=== PATIENT | male | born 1990 | race Caucasian/White ===

== ENCOUNTER 2023-04-11 09:30 | Outpatient (OUT) | payer OTHER, SELFPAY ==
--- NOTE | 2023-04-11 09:42 | XR_ITS ---
The [address] [address] Patient Name: ANALI NELSON MRN: [id number] date: 1990 Sex: M Assigned Patient Location: [facility] Current Patient Location: [facility] Accession/Order Number: [id number] Exam Date: 04/11/2023 09:50 Report Date: 04/11/2023 10:13 At the request of: MURPHY SHANNON Procedure: XR chest 2V EXAM: XR chest 2V HISTORY: Persistent Cough R05.3 COMPARISON: None. TECHNIQUE: PA and lateral views of the chest. FINDINGS: The cardiomediastinal silhouette is normal. No focal consolidation is identified. There is no pneumothorax. No pleural effusion is noted. The osseous structures are intact. XR/XR chest 2V IMPRESSION: No acute cardiopulmonary process. Electronically authenticated by: TAY WILLIAM Date: 04/11/2023 10:13
== END 2023-04-11 09:31 | disposition home or self-care (01) ==
LOC: RAD 09:33
PROVIDERS: PCP Internal Medicine; Visit Provider Internal Medicine
DX: R05.3 Chronic cough (principal)
CPT/HCPCS: 71046

== ENCOUNTER 2024-12-19 08:17 | Outpatient (OUT) | payer OTHER, SELFPAY ==
[2024-12-19 08:42] LABS: Hematocrit 44.8 % (42.0-54.0); Hemoglobin 15.6 g/dL (14.0-18.0); Immature Granulocytes Abs Auto 0.00 10^3/uL (0.00-0.03); Immature Granulocytes Pct Auto 0.0 % (0.0-0.5); Lymphocytes Absolute Auto 2.4 10^3/uL (1.2-3.8); Mean Corpuscular HGB Conc 34.8 g/dL (29.9-35.2); Mean Corpuscular Hemoglobin 29.4 pg (25.9-34.0); Mean Corpuscular Volume 84.5 fL (80.0-94.0); Platelet Count 244 10^3/uL (150-450); Red Blood Count 5.30 10^6/uL (4.70-6.10); White Blood Count 6.7 10^3/uL (4.0-11.0)
[2024-12-19 09:10] LABS: Alanine Aminotransferase 22 U/L (16-63); Albumin Globulin Ratio 1.0; Albumin Level 3.6 g/dL (3.4-5.0); Alkaline Phosphatase 65 U/L (46-116); Anion Gap 13.1; Aspartate Amino Transferase 26 U/L (15-37); Blood Urea Nitrogen 20.0 mg/dL (7.0-18.0); Calcium 8.9 mg/dL (8.5-10.1); Carbon Dioxide 28.7 mmol/L (21.0-32.0); Chloride 106 mmol/L (98-107); Cholesterol 239 mg/dL (<=200); Estimated GFR (African America >60 (>=60 mL/min/1.73m^2); Estimated GFR (Non-African Ame >60 (>=60 mL/min/1.73m^2); Globulin 3.5 g/dL; Glucose 90 mg/dL (74-106); HDL Cholesterol 44 mg/dL (40-60); Potassium 3.8 mmol/L (3.5-5.1); Sodium 144 mmol/L (136-145); Thyroid Stimulating Hormone 1.498 uIU/mL (0.358-3.740); Total Protein 7.1 g/dL (6.4-8.2); Triglycerides 138 mg/dL (<=150); VLDL CHOLESTEROL 27.6 mg/dL
== END 2024-12-19 08:18 | disposition home or self-care (01) ==
LOC: LAB 08:19
PROVIDERS: PCP Internal Medicine; Visit Provider Internal Medicine
DX: Z00.00 Encounter for general adult medical examination without abnormal findings (principal)
CPT/HCPCS: 36415; 80053; 80061; 84443; 85025

== ENCOUNTER 2025-05-15 07:59 | Outpatient (OUT) | payer OTHER, SELFPAY ==
--- NOTE | 2025-05-15 08:02 | CA_ITS ---
Patient Name: ANALI NELSON MR#: [id number] : 1990 Exam Date: 05/15/2025 Ordering Doctor: DR SHAINA SCOTT M.D. ECHOCARDIOGRAM REPORT PROCEDURE: CA ECHO DOPPLER COMPLETE INDICATIONS: Chest pain, dyspnea COMPARISON: None. DESCRIPTION: COMPLETE ECHOCARDIOGRAM Real-time transthoracic echocardiography with 2D, M-mode, spectral and color flow Doppler performed. QUALITY: Technical quality was good. LEFT VENTRICLE: Normal chamber size. Mild concentric left ventricular hypertrophy. Global left ventricular systolic function is normal. Estimated left ventricular ejection fraction is 60%. LV EF: Normal left ventricular ejection fraction, (>55%). DIASTOLIC: Normal diastolic function. ATRIAL SEPTUM: LEFT ATRIUM: Normal chamber size. RIGHT ATRIUM: Normal chamber size. RIGHT VENTRICLE: Normal chamber size. Normal right ventricular systolic function. TRICUSPID VALVE: Normal mobility and thickness. No stenosis with trivial regurgitation. No evidence of pulmonary hypertension. The RVSP measures 23 mmHg. MITRAL VALVE: Normal mobility and thickness. No evidence of mitral valve stenosis. There is no mitral annular calcification. Trivial mitral regurgitation. AORTIC VALVE: Normal trileaflet appearance. No visible sclerosis. Normal leaflet mobility. No evidence of aortic valve stenosis. No aortic regurgitation. AORTIC ROOT: Normal diameter and appearance. The aortic root measures 3.4 cm. The ascending aorta is normal in size measuring 2.9 cm. PULMONIC VALVE: Normal thickness and mobility. No stenosis. Trivial regurgitation. PERICARDIUM: No evidence of pericardial effusion. IVC: Collapses with inspiration. The ICV measures 1.7 cm. PLEURA: CONCLUSION: 1. Mild concentric left ventricular hypertrophy with normal systolic function. Estimated LVEF is 60%. 2. Normal right ventricular size and systolic function. 3. Normal diastolic function. 4. No significant valvular dysfunction. 5. Normal right-sided pressures. Adult Echocardiography Procedure Report Left Ventricle LVEDD (3.7 - 5.6 cm): 4.75 cm LVESD (2.2 - 4.0 cm): 3.27 cm LVIVS thickness (0.6 - 1.2 cm): 1.33 cm LVPW thickness (0.5 - 1.0 cm): 1.24 cm e': 0.14 m/s E - e': 6.48 LVOT Max Gradient: 5.38 mm[Hg] LVOT Area (cm2): 1.16 m/s Peak Velocity (LVOT): 1.16 m/s Mean Velocity (LVOT): 0.73 m/s LVOT Diameter 2.05 cm Left Ventricular Ejection Fraction: 60 % Left Atrium LA Volume Index (2D A2C): 20.58 ml/m2 Left Atrium Systolic Dimension: 3.66 cm Mitral Valve MV E to A Ratio: 1.44 Mitral Valve A-Wave Peak Velocity: 0.63 m/s Mitral Valve E-Wave Peak Velocity: 0.90 m/s Right Ventricle RV Internal Diastolic Dimension: 3.54 cm Aorta AO Root Diam: 3.38 cm Ascending Ao Diam: 2.85 cm Aortic Valve AoV Area (Peak Henri): 2.79 cm2, 2.79 cm2 AoV Area (VTI): 3.08 cm2, 3.08 cm2 Peak Velocity(Antegrade Flow): 1.37 m/s Peak Gradient(Antegrade Flow): 7.51 mm[Hg] Mean Velocity(Antegrade Flow): 0.84 m/s Mean Gradient(Antegrade Flow): 3.48 mm[Hg] Velocity Time Integral: 25.04 cm Tricuspid Valve Peak Velocity (Regurgitant Flow): 1.77 m/s, 2.25 m/s, 1.89 m/s Pulmonic Valve Mean Gradient: 1.87 mm[Hg], 1.54 mm[Hg] Mean Velocity: 0.63 m/s, 0.56 m/s Peak Velocity: 0.95 m/s Peak Gradient: 3.97 mm[Hg], 3.33 mm[Hg] Right Atrium Right Atrium Systolic Pressure: 31.71 ml, 31.71 ml Dictated by: Shaina Scott M.D. on 05/15/2025 at 18:29 Approved by: Shaina Scott M.D. on 05/15/2025 at 18:34
--- OUTSIDE RECORDS SUMMARY | 2025-05-15 08:02 | XMS_ITS | Clinical Summary ---
Author Organization [facility] Address [address] [place] [address] Care Team Providers Care Medical Coder Name Role Phone Vincent Luna DO Primary Care Provider [phone] Allergies Active AllergyReactionsCriticalityNoted DateCommentsCat Hair Std Allergenic Ext Other01/08/2025 Active Problems ProblemNoted DateDiagnosed DatePectus quzealfwt16/11/2025 Family History Medical HistoryRelationNameCommentsHeart attackMaternal GrandfatherHeart attack Maternal GrandmotherHypertensionMotherHeart attackPaternal GrandfatherHeart attackPaternal GrandmotherRelationNameStatusCommentsMaternal GrandfatherMaternal GrandmotherMotherPaternal GrandfatherPaternal Grandmother Social History Tobacco UseTypesPacks/DayYears UsedDateSmoking Tobacco: NeverSmokeless Tobacco: Never Tobacco Cessation:Counseling Given: Not Answered Alcohol UseStandard Drinks/WeekCommentsYes0 (1 standard drink = 0.6 oz pure alcohol)sociallyPHQ-2AnswerDate RecordedPatient Health Questionnaire-2 Score0 01/08/2025Sex and Gender InformationValueDate RecordedSex Assigned at BirthMale 01/08/2025 2:40 PM EDTLegal RdbHaqu4612/25/2024 8:25 AM EDTGender IdentityMale 01/08/2025 2:40 PM EDTSexual OrientationHeterosexual or Xacojppa22/29/2025 2:40 PM EDT Last Filed Vital Signs Vital SignReadingTime TakenCommentsBlood Urgqrwcf906/7708 8:54 AM EDT Lzbhn771101/21/2025 8:54 AM BPPJubygdggmee73.5 ??C (97.7 ??F)01/08/2025 2:40 PM EDTRespiratory Rate--Oxygen Bhouhoefqi99%01/21/2025 8:54 AM EDTInhaled Oxygen Concentration--Tphozu57.3 kg (219 lb)01/21/2025 8:54 AM JFOLsgizu594.9 cm (6') 01/21/2025 8:54 AM EDTBody Mass Index29.7001/21/2025 8:54 AM EDT Plan of Treatment Health MaintenanceDue DateLast DoneCommentsVaricella Vaccines (1 of 2 - 13+ 2- dose series)2004Hepatitis B Vaccines (1 of 3 - 19+ 3-dose series) 2010dult Cdfywur2003/13/2013HPV Vaccines (1 - 3-dose SCDM series)2018 COVID-19 Vaccine ( - season)511/, 04/20/2021Influenza Vaccine (#1)2025Depression Dnyruueqw17/29/36629701/08/2025Zoster Vaccines (1 of 2)2041HIB VaccinesAged OutNo longer eligible based on patient's age to complete this topicIPV VaccinesAged OutNo longer eligible based on patient's age to complete this topicMeningococcal B VaccineAged OutNo longer eligible based on patient's age to complete this topicMeningococcal VaccineAged OutNo longer eligible based on patient's age to complete this topicPneumococcal Vaccine: Pediatrics (0 to 5 Years) and At-Risk Patients (6 to 64 Years)Aged OutNo longer eligible based on patient's age to complete this topicRotavirus VaccinesAged Out No longer eligible based on patient's age to complete this topic Insurance Care Teams Team MemberRelationshipSpecialtyStart DateEnd Date Vincent Luna DO [address] [place] [address] PCP - GeneralInternal Medicine01/08/25
--- OUTSIDE RECORDS SUMMARY | 2025-05-15 08:02 | XMS_ITS | CCD ---
Author Organization [facility] Care Team Providers Care Court Deputy Name Role Phone VINCENT LUNA Admitting Unavailable VINCENT LUNA Attending Unavailable VINCENT LUNA Admitting Unavailable VINCENT LUNA Attending VINCENT Box Primary Care Physician DO Vincent Luna Primary Care Provider MD Shahrzad Castanon Attending Provider Vincent Luna Primary Care Unavailable Shahrzad Castanon Attending Shahrzad Boyce Admitting Unavailable Vincent Luna Unavailable Shahrzad Castanon. Attending Unavailable Shahrzad Castanon. Attending Unavailable Vincent Luna DO Primary Care Provider Vincent Luna DO Attending Provider MARY NGUYEN Attending Unavailabl e VINCENT LUNA Referring Unavailable SHAINA ARROYO Attending Unavailable JESSI ESQUIVEL Referring Unavailable Allergies Allergy ClassificationReported Allergen(s)Allergy TypeDate of OnsetReaction(s) Facility (4 sources)Seasonal allergy; Translations: [Seasonal]Allergy to substance Sneezing symptoms (finding)[facility] (1 source)CAT HAIR STD ALLERGENIC EXT; Translations: [CAT HAIR STD ALLERGENIC EXT]Propensity to adverse reactions to drug (disorder)95-56-0841ZyhyiacfyiWVUMedicine [facility] Repository Medications Current Medications MedicationDrug Class(es)DatesSig (Normalized)Sig (Original)cephalexin 500 mg oral capsule (2 sources)Cephalosporin AntibacterialStart: 33-68-3760xije 1 capsule by mouth four times dailyKeflex 500 mg Cap 500 mg = 1 cap(s), Oral, QID, # 20 cap(s), Refills(s) 0, Pharmacy: [facility]/pharmacy #[id number], 184, martín, 10/07/21 8:37:00 EDT, Height/Length Dosing, 90.9, kg, 10/07/21 8:37:00 EDT, Weight Dosing Start Date: 10/07/21 Status: Ordered Completed/Discontinued Medications MedicationDrug Class(es)DatesSig (Normalized)Sig (Original)acetaminophen 325 mg / HYDROcodone bitartrate 5 mg oral tablet (2 sources)Opioid AgonistStart: 10-07-2021 End: 58-25-5982Ejusf 325 mg-5 mg oral tablet 1 tab(s), Oral, q6hr for severe uncontrolled pain, 4 tab(s), Refill(s) 0, [facility]/pharmacy #[id number], 184, , 10/07/21 8:37:00 EDT, Height/Length Dosing, 90.9, kg, 10/07/21 8:37:00 EDT, Weight Dosing Start Date: 10/07/21 Stop Date: 10/10/21 Status: Orderedcefdinir 300 mg oral capsule (2 sources)Cephalosporin AntibacterialStart: 65-38-7398Uohpwpij 300 MG 1 Orally twice daily for 10 days Jun, Not-Takingcyclobenzaprine hydrochloride 10 mg oral tablet (2 sources)Muscle RelaxantStart: 83-69-6201tavs 1 tablet by mouth every eight hoursCyclobenzaprine HCl 10 MG 1 tablet as needed Orally Three times a day for 10 days Feb, Not-TakingdiazePAM 10 mg oral tablet (1 source)BenzodiazepineStart: 39-10-2322Xzmknf 10 mg Tab 10 mg = 1 tab(s), Oral, As Directed, Take 1 tab 30 minutes before the procedure., # 1 tab(s), Refills(s) 0, Pharmacy: [facility]/pharmacy #[id number], 184, cm, 10/07/21 8:37:00 EDT, Height/LengthDosing, 90.9, kg, 10/07/21 8:37:00 EDT, Weight Dosing Start Date: 10/07/21 Status: Orderedhydrocortisone 10 mg/ml / neomycin 3.5 mg/ml / polymyxin b 84145 unt/ml otic suspension (2 sources)Aminoglycoside Antibacterial, Polymyxin-class Antibacterial, CorticosteroidStart: 45-17-6849Qozqqfmc-Polymyxin-HC 3.5-38972-2 4 drops into affected ear Otic qid for 7 days Jun, Not-Takingmeloxicam 7.5 mg oral tablet (2 sources)Nonsteroidal Anti-inflammatory Drugtake 1 tablet by mouth every twenty-four hoursMeloxicam 7.5 MG 1 tablet Orally Once a day Not-Taking methylPREDNISolone 4 mg oral tablet (2 sources)CorticosteroidStart: 38-69-0343Fuycye (Johnny) 4 MG half of daily dose in the morning with food and the rest at night with food Orally Feb, Not-Taking Problems Active Problems Problem ClassificationProblemDateDocumented DateEpisodic/ChronicChronic obstructive pulmonary disease and bronchiectasis (1 source)Bronchitis, not specified as acute or chronicEpisodicContraceptive and procreative management (5 sources)Contraception status; Translations: [Encounter for other general counseling and advice on contraception]Onset: 64-33-6153XayevgafLnmgihtno of lipid metabolism (2 sources)Mixed hyperlipidemia; Translations: [Mixed hyperlipidemia]Onset: 98-39-4495WzcwmceLtwlzhyyitc chest pain (2 sources)Other chest pain; Translations: [Other chest pain]Onset: 01-21-2025 EpisodicOther congenital anomalies (3 sources)Pectus excavatum; Translations: [Pectus excavatum]Onset: 01-08-2025 27-86-3022NjglmzzJnaey congenital anomalies (1 source)Pectus excavatum; Translations: [Pectus excavatum]Onset: 01-08-2025 ChronicOther lower respiratory disease (2 sources)Shortness of breath; Translations: [Shortness of breath]Onset: 29-80-8601GjgvoxqeFsqte nutritional; endocrine; and metabolic disorders (5 sources)Overweight; Translations: [Overweight]25-35-4061MyoezfqlHxrkf nutritional; endocrine; and metabolic disorders (1 source)Overweight; Translations: [Overweight]EpisodicOther skin disorders (2 sources)Excessive sweating; Translations: [Generalized hyperhidrosis] 82-61-7033LtgcocpqSllzvhq and strains (10 sources)Sprain of ligaments of lumbar spine, subsequent encounter; Translations: [Lumbar sprain]Onset: 26-09-0902FdkptfbbLaszmxiygljb (3 sources)Patient encounter frqzop77-71-3885 Past or Other Problems Problem ClassificationProblemDateDocumented DateEpisodic/ChronicUnclassified (1 source)Persistent cough R05.3Viral infection (1 source)COVID-19 Results Test NameValueInterpretationReference HuktoGibiuvbx03zt 77-75-6916724. Due to your symptoms of shortness of breath and chest discomfort we will check a treadmill stress test and an echocardiogram. 2. You have elevated cholesterol levels. I recommended lifestyle modification with exercise and diet. 3. Follow-up in 6-monthNormalUniHocking Valley Community HospitalOffice Visiton 30-56-5390Ctpguf-up [id number] Anali Nelson 1990 M Date Provider Department Center 01/21/2025 Godwin-SHAINA ARROYO [facility] Family History Problem Relation Age of Onset Hypertension Mother Heart attack Maternal Grandmother Heart attack Maternal Grandfather Heart attack Paternal Grandmother Heart attack Paternal Grandfather Family Status - Relation Status Age at Mother Maternal Grandmother Maternal Grandfather Paternal Grandmother Paternal Grandfather Level of Service:36711 PA OFFICE/OP CONSLTJ NEW/EST PT MOD MDM 40 MINUTES (25)[facility]36on 25-77-113631RUD with call back number with Cardiology appointment details. TuesdayJanuary [address] Arroyo at [facility].Normal [facility] HospitalAbstracton [id number] Anali Nelson 1990 M Date Provider Department Center 01/08/2025 2020-KENNY DUNN [facility] Family History Problem Relation Age of Onset Hypertension Mother Heart attack Maternal Grandmother Heart attack Maternal Grandfather Heart attack Paternal Grandmother Heart attack Paternal Grandfather Family Status - Relation Status Age at Mother Maternal Grandmother Maternal Grandfather Paternal Grandmother Paternal GrandfatherNormalKettering Memorial HospitalConsulton [id number] Anali Nelson 1990 M Date Provider Department Center 01/08/2025 89519-MHURGCITUBMARY NGUYEN J[facility]CTS [facility] Family History Problem Relation Age of Onset Hypertension Mother Heart attack Maternal Grandmother Heart attack Maternal Grandfather Heart attack Paternal Grandmother Heart attack Paternal Grandfather Family Status - Relation Status Age at Mother Maternal Grandmother Maternal Grandfather Paternal Grandmother Paternal Grandfather Level of Service:43890 PA OFFICE/OP CONSLTJ NEW/EST PT HIGH MDM 55 MINUTES Reason for Visit and Comments: Consult [484] - Pectus excavatum [facility] RehabilitationAmb[facility] Visit Summaryon 57-05-9711Xozulbqwoj Visit SummaryAmbulatory Visit Summary ANALI NELSON :1990 Visit Date:10/05/2024 Ambulatory Visit Instructions Your Diagnosis Scrotal pain Your Care Team Attending Physician - Shahrzad Castanon MD Primary Care Physician - VINCENT LUNA DO Procedures Performed Vasectomy (11/05/2021). Discharge Vitals Heart Rate (Peripheral) 69 Blood Pressure 141/93 Height 184 cm Height 72 in Weight 99 kg Weight 218.257 lb BMI 29.24 What to do next You Need to Schedule the Following Appointments Follow Up with Lg POP, Shahrzad Funes, URL, URO When: Where: Allergies Seasonal (Sneezing symptoms) Patient Survey You may receive a survey via text or e-mail asking about your office visit. Please share your experience with us by completing your survey. We appreciate your feedback and thank you for choosing us for your care. Education Materials Testicular Self-Exam A self-examination of your testicles (testicular self-exam) involves looking at and feeling your testicles for abnormal lumps or swelling. Several things can cause swelling, lumps, or pain in your testicles, including: ??? Injuries. ??? Inflammation. ??? Infection. ??? Buildup of fluids around the testicle (hydrocele). ??? Twisted testicles (testicular torsion). ??? Testicular cancer. You may be at risk for this if you have: ? A testicle that has not descended. ? Previously had testicular cancer. ? A family history of testicular cancer. General tips ??? It is easiest to do a self-exam during or after a warm bath or shower. Testicles are harder to examine when you are cold because the muscles attached to the testicles retract and pull them up higher or into the abdomen. ??? A normal testicle is egg-shaped and feels firm. It is smooth and not tender. ??? It is normal to feel a firm, spaghetti-like cord at the back of your testicle. This is the spermatic cord. ??? Do a self-exam once a month. How to do a testicular self-exam 1. Stand and hold your penis away from your body. 2. Look at each testicle to check for changes in appearance, such as swelling or changes in size or shape. 3. Roll each testicle between your thumb and forefinger, feeling the entire testicle. Feel for: ??? Lumps. ??? Swelling. ??? Discomfort. 4. Check for swelling or tender bumps in the groin area. Your groin is where your lower belly (abdomen) meets your upper thighs. Contact a health care provider if: ??? You find a bump or lump. This may be a small, hard bump that is the size of a pea. ??? You have swelling, pain, or soreness in your testicle area. ??? You see or feel any other changes in your testicles. This information is not intended to replace advice given to you by your health care provider. Make sure you discuss any questions you have with your health care provider. Document Revised: 03/14/2023 Document Reviewed: 03/14/2023 [employer] Patient Education ??? 2023 [employer]. NormalFisher Holy Cross HospitalUrology Office/Clinic Noteon [id number] Office/Clinic NoteUrology Office/Clinic Note Chief Complaint scrotal pain 3-4weeks ago HPI Staff 34 year old male presents for scrotal pain. Last seen 11/25/21 for p/o vas. s/p: 10/16/21 vas IPSS: 1 SERGE: 25 Pt states he is no longer having any pain. Pt had pain 3-4 weeks ago with left sided scrotal pain w/ redness and swelling that went away. Denies dysuria, denies visible blood. Denies pain with intercourse History of Present Illness Tests reviewed: UA I have reviewed the previous health record information and history for this patient from Dr. Castanon. I have reviewed and verified the staff HPI to be accurate for this encounter. Review of Systems PHQ Score Initial Depression Screen Score: 0 SCORE ROS - Provider Constitutional: denies weight loss, denies hot flashes. Eyes: denies eye problems. Gastrointestinal: denies nausea, denies vomiting. Cardiovascular: denies chest pain or angina. Integumentary: no dryness Musculoskeletal: denies musculoskeletal symptoms. ENMT: denies otolaryngeal symptoms. Respiratory: no shortness of breath. Heme/Lymph: denies easy bleeding tendency, denies easy bruising tendency. Psychiatric: no confusion, no anxiety. Genitourinary: See HPI. Physical Exam Vitals & Measurements HR: 69(Peripheral) BP: 141/93 HT: 184 cm HT: 72 in WT: 99 kg WT: 218.257 lb BMI: 29.24 General Appearance: alert, no distress, well nourished, well developed male. : No Left inguinal hernia. BL testes descended, nontender, no masses. Left spermatic cord tissue fullness lipoma vs varicocele (no veins noted with valsalva), non tender, no swelling. Assessment/Plan 34 yo M pt here for self-resolved left scrotal pain. S/p vasectomy 11/05/21 - azoospermia confirmed postop vas specimen 02/22/22 IPSS 1. SERGE 25. 1. Scrotal pain (N50.82: Scrotal pain) UA neg. 3-4 wks ago, pt had pain, redness, swelling in his left upper scrotum for 3-4 days then it resolved. He does not recall any triggers. No urethral discharge, gross hematuria or changes with ejaculation. Has noticed less ejaculate volume for 6-7 mos otherwise does not appear different. No issues aftervasectomy. Discussed scrotal US, pt does not feel that is necessary at this time. Educated on S/S of infection that would warrant treatment or follow up conditions. Follow up PRN. Pt understands and agrees with plan. -Regular monthly self testicular exams -If sx recur, NSAIDS/tylenol prn, scrotal support, call for closer f/u or present to urgent care/ERif signs of infection Follow-up With When Contact Information Lg POP, Shahrzad Funes, URL, URO Additional Instructions: PRN Patient Education Testicular Self-Exam I, Crystal Mobley, personally scribed for Dr. Castanon on 10/05/2024 09:39:43. . Documentation recorded by the scribe, Crystal Mobley, accurately reflects the services(s) I performed and decisions made by me. Authenticated by Dr. Castanon on 10/05/2024 09:46:12. Problem List/Past Medical History Ongoing No qualifying data Historical No qualifying data Procedure/Surgical History Vasectomy (11/05/2021). Medications No active medications Allergies Seasonal (Sneezing symptoms) Social History Tobacco Never (less than 100 in lifetime) Tobacco Use:. Never Smokeless Tobacco Use:. Cigarettes, 10/05/2024 Family History Diabetes mellitus type 2: Grandparent. Immunizations Vaccine Date Status Comments influenza virus vaccine, inactivated - Not Given Temporary contraindication - reschedule SARS-CoV-2 (COVID-19) Ad26 vaccine 05/2021 Recorded SARS-CoV-2 (COVID-19) mRNA BNT-162b2 vax 05/11/2021 Recorded SARS-CoV-2 (COVID-19) mRNA BNT-162b2 vax 04/20/2021 Recorded 2024-10-05: TPVAL SARS-CoV-2 (COVID-19) Ad26 vaccine 04/2021 Recorded Lab Results Ambulatory Point of Care Results Bilirubin Urine Dipstick: Negative (10/05/24 09:12:00) Blood Urine Dipstick: Negative (10/05/24 09:12:00) Glucose Urine Dipstick: Negative (10/05/24 09:12:00) Ketones Urine Dipstick: Negative (10/05/24 09:12:00) Leukocytes Urine Dipstick: Negative (10/05/24 09:12:00) Nitrite Urine Dipstick: Negative (10/05/24 09:12:00) Protein Urine Dipstick: Negative (10/05/24 09:12:00) Specific [place] Urine Dipstick: 1.025 (10/05/24 09:12:00) Urine Appearance Urine Dipstick: Clear (10/05/24 09:12:00) Urine Color Urine Dipstick: Yellow (10/05/24 09:12:00) Urobilinogen Urine Dipstick: Normal 0.2-1 EU/dl (10/05/24 09:12:00) pH Urine Dipstick: 5.5 (10/05/24 09:12:00)[facility] Comment on above:Result Comment: Electronically Signed By: Lg POP, Shahrzad Funes\.br\Date and Time Signed: 10/05/24 09:48EDT\.br\Electronically Co-Signed By: Crystal Mobley\.br\Date and Time Co-Signed: 10/05/24 09:39 EDTSemen Analysis, Post Vasectomyon 31-03-6380Fjamn Analysis, Post VasectomyNo Spermatozoa Seen NormalNone [facility] CenterComment on above:Performed By: #### SEMPOST #### [place] [address] USAResult Comment: PERFORMED BY: [place] [address] PATHOLOGIST COFFEE TASTER ROMINA ALTMAN M.D.Semen analysis post vasectomy panelOrdered By: Shahrzad Castanon on 29-18-8366Sfxwo analysis p vasectomy panel (Sunny)No spermatozoa seenNone Seen [facility] Vital Signs Date TimeVital SignValuePerforming JlkuoayjiLgfvvwdg45-57-3488 10:Body dekbiz410.88 cmBenjamin Ball DO Work Phone: [facility]07-08-2025 10: Body mass index (BMI) [Ratio]29.6 kg/x3Zxbdsufe Ball DO Work Phone: [facility]07-08-2025 10: Body uypirf04.1 kgBenjamin Ball DO Work Phone: [facility]07-08-2025 10:28-0400 Diastolic blood kxjgvqdo30 mm[Hg]Vincent Ball DO Work Phone: [facility]07-08-2025 10:28-0400 Heart rate71 /minBenjamin Ball DO Work Phone: [facility]07-08-2025 10:28-0400 Respiratory rate12 /minBenjamin Ball DO Work Phone: [facility]07-08-2025 10:28-0400 Systolic blood cvawqwqs589 mm[Hg]Vincent Ball DO Work Phone: [phone]10-30-2023 08:45-0400 Body lodvlu281.42 cmBenjamin Ball Other [employer] Other 10-30-2023 08:45-0400Body mass index (BMI) [Ratio]26.3 kg/e6Fktddnvq Ball Other [employer] Other 10-30-2023 08:45-0400Body wtckuk69.45 kgBenjamin Ball Other [facility] [employer] Other 10-30-2023 08:45-0400Diastolic blood fledlbjg47 mm[Hg] Vincent Ball Other [employer] [address] [employer] Other 10-30-2023 08:45-0400Respiratory rate12 /minBenjamin Ball Other [employer] [address] [employer] Other 10-30-2023 08:45-0400Systolic blood fusyrhcq017 mm[Hg] Vincent Ball Other [employer] [address] [employer] Other 06-15-2022 07:57-0400Blood Pressure LocationKathy Lue [facility] [employer] 06-15-2022 07:57-0400Diastolic blood xhxkerua23 mm[Hg] Shahrzad Lue [facility] [employer] 06-15-2022 07:57-0400Heart rate67 /minKathy Lue [facility] [employer] 06-15-2022 07:57-0400Systolic blood mm[Hg] Shahrzad Lue [facility] [employer] 05-26-2022 07:29-0400Blood Pressure LocationKathy Lue [facility] [employer] 05-26-2022 07:29-0400Diastolic blood mm[Hg] Shahrzad Lue [facility] [employer] 05-26-2022 07:29-0400Heart rate75 /minKathy Lue [facility] [employer] 05-26-2022 07:29-0400Respiratory rate16 /minKathy Lue [facility] [employer] 05-26-2022 07:29-0400Systolic blood bufujhjf635 mm[Hg] Shahrzad Lue [facility] 04-27-2022 08:33-0400Diastolic blood iiyugsvr11 mm[Hg] Shahrzad Lue [facility] 04-27-2022 08:33-0400Heart rate64 /minKathy Lue [facility] 04-27-2022 08:33-0400Respiratory rate16 /minKathy Lue [facility] 04-27-2022 08:33-0400Systolic blood rqeakqdr516 mm[Hg] Shahrzad Lue [facility] Encounters Encounter DateEncounter TypeCare ProviderFacilityStart: 01-21-2025 End: 02-65-6373vkdunzhwxiVBOLNE MOUKARBOhioHealth [facility]in [facility] Hospital Start: 01-08-2025 End: 32-35-6533lkgzzfmozzABHTCGS J [facility]OWSSal[facility] Start: 12-18-2024 End: 66-82-5520yqyozqxangHdamxvph Jeremy DO Work Phone: [facility] Work Phone: Start: 12-18-2024 End: 88-86-5875Vwbplcr encounter procedureBemarcela Luna [facility] Work Phone: Start: 12-18-2024 End: 45-87-1086Hcrmeik encounter statusBemarcela Luna [facility]: 10-05-2024 End: 72-63-6479fjjpiwksxwWcovv M. LueFacility:[facility] BellevueStart: 08-25-2024 Patient encounter statusBemarcela Jeremy DO Work Phone: [facility]art: 04-12-2023 End: 31-53-8752tgkhpxxakwKoywahtk Ball Other [facility] [employer] Other Start: 09-42-0880Vpzevsato encounterBemarcela Luna Medical ClinicStart: 04-11-2023 End: 39-50-2194xjtibjjycnObfaebkl Ball Other [facility] [employer] Other Start: 64-41-3823Nzfpbk outpatient visit 15 minutes [facility] ClinicStart: 02-22-2022 End: 65-56-0648fgashipifyXltrulbf BallFacility:[facility] Start: 02-22-2022 End: 66-39-6677Qdgjtis encounter procedureDO Vincent Luna Work Phone: [facility] CampusStart: 11-25-2021 End: 99-16-5328Ltfgowj encounter procedureShahrzad Castanon [facility] start: 11-05-2021 End: 39-31-7828Wgwpsho encounter procedureShahrzad Castanon [facility] Start: 10-07-2021 End: 90-73-3458Njvuqaa encounter procedureShahrzad Castanon [facility] start: 73-65-1776Wgoojke encounter procedureBEMichaelLUZ ELENA LUNAFacility:P2Suxpi: 05-04-2019 End: 81-66-1367Ftmvjae encounter procedureBEMichaelLUZ ELENA LUNAFacility:H1 Procedures DateProcedureProcedure DetailPerforming ClinicianStart: 11-25-2021H/O: vasectomy Shahrzad M. Lue Start: 37-57-4237XdpsyzpatQowri Lue Plan of Treatment DateCare ActivityDetailAuthorComprehensive metabolic 2000 panel - Serum or PlasmaLower [facility] Immunizations Immunization DateImmunizationNotesCare GuirdmoaBvcbmywd31-52-2805WGYK-RtV-0 (COVID-19) Ad26 vaccine, recombinantKathy Lue [facility] [id number]-KnP-0 (COVID-19) Ad26 vaccine, recombinantKathy Lue [facility] Payers DatePayer CategoryPayerPolicy [id number] Health [id number] [id number] Health [id number] [id number] [id number] Social History DateTypeDetailFacilityStart: 07-06-2017 End: 53-85-8239Vqvtuwj smoking statusNever smoked tobacco (finding)[facility] sex Assigned At [facility] Tobacco smoking statusNeverExecutive [facility] of [facility] start: 08-26-0788Xxq [facility] At [facility]ex[facility] (finding)[facility] Functional Status LukzDysgnclmgcFylzgdBidetklr01-41-7933Rifbnkbepg StatusN/AExec[facility] Clinical Notes 10-07-2021 to 01-21-2025 Note Date & FbcvPhuaUyjyucht19-04-4252 NoteUT Cardiology [facility] David Nelson is a 34 y.o. year old male patient being seen to establish care. Ref from Dr. Esquivel for SOB and chest discomfort . C/o episodes of diaphoresis and infrequent palpitations. No previous cardiac testing, but had labs last month. Patient Active Problem List Diagnosis Pectus excavatum Family History Problem Relation Name Age of Onset Hypertension Mother Heart attack Maternal Grandmother Heart attack Maternal Grandfather Heart attack Paternal Grandmother Heart attack Paternal Grandfather Social History Tobacco Use Smoking status: Never Smokeless tobacco: Never Substance Use Topics Alcohol use: Yes Comment: socially HPI This is a 34-year-old man who is referred to me for investigation of chest discomfort and shortness of breath. He was referred by his primary care physician to cardiothoracic surgery because of pectus pectus excavatum. It appears that this condition runs in the family and to family members have undergone surgery for correction. He was evaluated by cardiothoracic surgery service and because of his symptoms of chest pain and shortness of breath he was referred to me for further investigation. He reports that he gets occasional symptoms of chest pain described as tension in the chest that could happen about 1 or 2 times a day with or without exertion. The symptom is moderate in intensity and lasts minutes and can resolve on its own. He also has shortness of breath on exertion NYHA class II symptoms. No leg edema. He has very infrequent palpitations. Sometimes he gets episodes of diaphoresis. He does not take any medications on a regular basis. He has not had any prior cardiac workup. Recent blood testing shows elevated cholesterol levels. His family history is significant for coronary artery disease. Review of Systems Constitutional: Positive for diaphoresis. Cardiovascular: Positive for chest pain ( discomfort ), dyspnea on exertion and palpitations ( sometimes ). Respiratory: Positive for shortness of breath. Objective Visit Vitals BP 117/77 (BP Location: Right arm, Patient Position: Sitting) Pulse 58 Ht 1.829 m (6') Wt 99.3 kg (219 lb) SpO2 99% BMI 29.70 kg/m??? Smoking Status Never BSA 2.25 m??? Physical Exam Constitutional: Appearance: He is well-developed. He is not ill-appearing. HENT: Head: Normocephalic and atraumatic. Nose: Nose normal. Eyes: General: No scleral icterus. Pupils: Pupils are equal, round, and reactive to light. Neck: Thyroid: No thyromegaly. Vascular: No JVD. Cardiovascular: Rate and Rhythm: Normal rate and regular rhythm. Pulses: Radial pulses are 2+ on the right side and 2+ on the left side. Heart sounds: Normal heart sounds. No murmur heard. No friction rub. No gallop. Pulmonary: Effort: Pulmonary effort is normal. No respiratory distress. Breath sounds: Normal breath sounds. No wheezing or rales. Chest: Chest wall: No tenderness. Abdominal: General: Bowel sounds are normal. There is no distension. Palpations: Abdomen is soft. Tenderness: There is no abdominal tenderness. Musculoskeletal: General: No swelling. Cervical back: Neck supple. Skin: General: Skin is warm and dry. Neurological: General: No focal deficit present. Mental Status: He is alert and oriented to person, place, and time. Psychiatric: Mood and Affect: Mood normal. Behavior: Behavior is cooperative. Judgment: Judgment normal. Allergies Allergies Allergen Reactions Cat Hair Std Allergenic Ext Other Medications No current outpatient medications on file. Recent Labs Blood testing 12/19/2024: Hemoglobin 15.6, platelets 244, potassium 3.8, BUN 20, creatinine 1.05, EGFR more than 60, LFTs normal, triglycerides 138, cholesterol 239, LDL 168, HDL 44. TSH 1.498. Imaging and other tests ECG 01/21/2025: Normal sinus rhythm, normal ECG. Assessment/Plan Diagnoses and all orders for this visit: Atypical chest pain - Ambulatory referral to Cardiology - ECG 12 lead unit performed - Transthoracic echo (TTE) complete; Future - Routine Stress (Treadmill Only); Future Shortness of breath - Ambulatory referral to Cardiology - Transthoracic echo (TTE) complete; Future - Routine Stress (Treadmill Only); Future Mixed hyperlipidemia - Lipid panel; Future 1. Atypical chest pain: EKG today is normal. I am going to check treadmill exercise stress test given his symptoms, and risk factors including strong family history and hyperlipidemia. I will also check an echocardiogram. 2. Shortness of breath: I am going to check an echocardiogram and a stress test. The echocardiogram will help rule out any cardiac structural abnormalities. 3. Hyperlipidemia: I educated him regarding his significantly elevated cholesterol levels. His LDL is around 170. I told him that the first step would be lifestyle modification with diet (more content not included)... [facility]07-29-2025 NoteCardiothoracic Surgery Outpatient Consultation Note 01/08/2025 Reason For Visit Chief Complaint Patient presents with Consult Pectus excavatum referral from Vincent Luna DO Referring Provider: Vincent Luna DO History Of Present Illness Anali Nelson is a 34 y.o. male with no real PMH. Patient does not take any medications on a daily basis. He does not smoke. He was referred for Pectus Excavatum by his PCP. Patient states over the last year he has been experiencing intermittent episodes of chest pain/pressure and SOB. The events are at random and do not last for a long time. Denies dizziness or lightheadedness. CP and SOB is not relieved with medication or rest. Endorses his father and grandfather underwent surgery for pectus excavatum, yet he thinks it was due to cosmetic reasons. Does not recall them experiencing SOB or Chest Pain. Assessment: Diagnosis Plan 1. Pectus excavatum Ambulatory referral to Cardiothoracic Surgery Plan : -Patient seen and evaluated by Cardiothoracic Team. Dr. Forbes and Dr. Esquivel personally were informed of POC for patient and agreed with POC. -CT Surgery Recommendation: At this time patient does show signs of pectus excavatum on physical examination. He is non-tender with palpation to the sternum. Patient was referred by PCP and has no previous imaging studies. His symptoms of SOB and intermittent episodes of chest tightness/pain are vague. Patient has never underwent a formal cardiac workup and does have cardiac history in his family. He endorses his father and grandfather had pectus excavatum and had surgery for it, but felt it was more for cosmetic reasons. He would like to approach surgery for Pectus Excavatum conservatively. Informed will refer patient to [place] [facility]ology to r/o cardiac cause. Also discussed about patient suffering from anxiety, due to the description of his chest pain and SOB could potentially be r/t a panic attack. Patient says he has not been diagnosed with anxiety, but he knows he does have it. He will talk with his PCP about treatment. As for surgical intervention, would refer patient to [facility] or [facility], at this time patient wants to go to cardiology and PCP before exploring surgical route. -All questions and concerns answered appropriately. Patient agreeable to plan of care. Our office will get patient in with cardiology and refer to [facility] or [facility] if patient decides down the road he wants to proceed with surgery for his Pectus Excavatum. Past Medical History He has no past medical history on file. Surgical History He has no past surgical history on file. Family History Family History[1] Social History He reports that he has never smoked. He has never used smokeless tobacco. He reports current alcohol use. No history on file for drug use. Allergies Cat hair std allergenic ext Medications Current Medications[2]- none. Review of Systems Review of Systems: All 14 Systems Reviewed and Negative unless otherwise indicated in the above HPI. Last Recorded Vitals Visit Vitals BP 134/83 (BP Location: Right arm, Patient Position: Sitting, BP Cuff Size: Large adult long) Pulse 79 Temp 36.5 ???C (97.7 ???F) (Temporal) Physical Exam Relevant Results No prior imaging. Cardiothoracic Surgery outpatient Office Number [phone]. Cardiothoracic Surgery outpatient . [1] Family History Problem Relation Name Age of Onset Hypertension Mother Heart attack Maternal Grandmother Heart attack Maternal Grandfather Heart attack Paternal Grandmother Heart attack Paternal Grandfather [2] No current outpatient medications on file. No current facility-administered medications for this visit.[facility]07-18-2025 Imhi6jx attempt to reach patient to schedule no answer lmom. Also received a fax from [facility] for a referral follow up.[facility]07-15-2025 NoteReferral from [facility] by Dr Luna was sent to [place]. Call placed to [facility] to see if they had any images or testing on patient they stated that they did not. Call placed to patient to see if he had any images no answer lmom to call back. [facility]04-25-2025 NotePatient Education Urology Testicular Self-Exam A self-examination of your testicles (testicular self-exam) involves looking at and feeling your testicles for abnormal lumps or swelling. Several things can cause swelling, lumps, or pain in your testicles, including: ??? Injuries. ??? Inflammation. ??? Infection. ??? Buildup of fluids around the testicle (hydrocele). ??? Twisted testicles (testicular torsion). ??? Testicular cancer. You may be at risk for this if you have: ? A testicle that has not descended. ? Previously had testicular cancer. ? A family history of testicular cancer. General tips ??? It is easiest to do a self-exam during or after a warm bath or shower. Testicles are harder to examine when you are cold because the muscles attached to the testicles retract and pull them up higher or into the abdomen. ??? A normal testicle is egg-shaped and feels firm. It is smooth and not tender. ??? It is normal to feel a firm, spaghetti-like cord at the back of your testicle. This is the spermatic cord. ??? Do a self-exam once a month. How to do a testicular self-exam 1. Stand and hold your penis away from your body. 2. Look at each testicle to check for changes in appearance, such as swelling or changes in size orshape. 3. Roll each testicle between your thumb and forefinger, feeling the entire testicle. Feel for: ??? Lumps. ??? Swelling. ??? Discomfort. 4. Check for swelling or tender bumps in the groin area. Your groin is where your lower belly (abdomen) meets your upper thighs. Contact a health care provider if: ??? You find a bump or lump. This may be a small, hard bump that is the size of a pea. ??? You have swelling, pain, or soreness in your testicle area. ??? You see or feel any other changes in your testicles. This information is not intended to replace advice given to you by your health care provider. Make sure you discuss any questions you have with your health care provider. Document Revised: 03/14/2023 Document Reviewed: 03/14/2023 [employer] Patient Education ? 2023 [employer].[facility] [place] 04-11-2023 Evaluation note* Encounter Date Diagnosis Assessment Notes Treatment Notes Treatment Clinical Notes Mar, Persistent cough (ICD-10 - R05.3 ) Mucinex DM CXR to r/o pneumothorax and pneumonia Mar,OVID-19 (ICD-10 - U07.1)4 wks post infection. s/s acute infection resolved Continue w/ nasal congestion and productive cough Lingering symptoms of COVID or new problem? Mar,ronchitis, not specified as acute or chronic (ICD-10 - J40)Mucinex DM/Advil daily as needed Push fluids CXR to r/o pneumothorax and pneumonia [employer] Other 06-15-2022 Evaluation + Plan note Diagnostic Tests Pending * Semen Analysis Post Vasectomy 11/25/21 [facility] 06-15-2022 Hospital Discharge instructions Patient Education 11/25/2021 07:59:46 Preventing HIV Infection and AIDS Preventing HIV Infection and AIDS HIV (human immunodeficiency virus) infection is a long-term (chronic) viral infection. HIV kills white blood cells that help to control the body's defense (immune) system and fight infection. HIV spreads through semen, blood, breast milk, rectal fluid, and vaginal fluid. HIV is commonly spread through sexual contact and sharing needles or syringes, because these behaviors involve exchanging bodily fluids. Without treatment, HIV can turn into AIDS (acquired immunodeficiency syndrome), which is an advanced stage of HIV infection. AIDS is a very serious illness and can be life-threatening. What changes can I make to protect myself from HIV infection? Sexual contact To protect yourself from HIV through sexual contact: Use devices that prevent body fluids from passing between partners (barrier protection) every time you have sex. Barrier protection can be used during oral, vaginal, or anal sex. Commonly used barrier methods include: ?Male condom. ?Female condom. ?Dental dam. If you are at risk, ask your health care provider about taking medicine that can prevent HIV infection (pre-exposure prophylaxis, PrEP). Get tested for HIV and know the HIV status of your sexual partner(s). Avoid having sex with partners without a known HIV status. If you or your partner is HIV-positive, use protection during sex. Practice monogamy. This means you have only one sexual partner in your lifetime or only one partnerat a time (serial monogamy). Get tested and treated for STIs (sexually transmitted infections). Having an STI increases your risk for getting HIV. The only way to completely prevent HIV from being spread through sexual contact is not to have any kind of sex (abstinence), including oral, vaginal, or anal sex. Drug use To protect yourself from HIV through drug use: Do not use drugs, especially drugs that are injected. Avoid having sex while under the influence of alcohol and drugs. Alcohol and drugs can affect your ability to make good decisions and may lead you to engage in high risk behaviors. Do not share needles or syringes with anyone else. If you do share needles or syringes, consider taking PrEP to prevent HIV infection. Blood and bodily fluid To protect yourself from HIV through exposure to blood and bodily fluids from a person who has HIV: Cover any sores or wounds on yourself or the person with HIV. If you need to touch blood or bodily fluids from an infected person, use gloves and wash your handsafterward. Do not share items that touch bodily fluids or blood, such as toothbrushes or razors. What can happen if I do not make these changes? If you do not make these changes: You put yourself at risk of getting HIV from an infected person. HIV is a serious, life-threateningillness that cannot be cured. Having HIV makes it easier to get sick and more difficult to get well. You can pass HIV on to others even if you don't know that you have it. An infected mother can also pass it to her children through , childbirth, or . You expose yourself to complications from the virus. Without treatment, the virus progresses. As itmultiplies in your body, it causes the immune system to stop protecting you from infections and other health problems. You may get infections that you would not normally get if your immune system washealthy and working properly (opportunistic diseases). You put yourself at risk of side effects from HIV medicines. HIV medicines (antiretroviral therapy,ART) can help slow the virus from progressing and prevent its spread to others. People with HIV must take these medicines on a daily basis in order to live long, healthy lives. However, these medicines have side effects. Long-term use of ART medicines can lead to chronic health conditions, such as damage to the liver and kidneys, diabetes, and heart disease. People who take HIV medicines must useprotection during sex because they can still pass the virus on to sexual partners. You could also put yourself at high risk for getting other sexually transmitted infections. You put yourself at risk of having an unintended . Where to find support To get support preventing HIV infection and AIDS: Talk with your health care provider. Visit your local health department or clinic. Consider joining a support group. Where to find more information Learn more about HIV and AIDS from: U.S. Department of Health and Human Services: www.aids.gov Centers for Disease Control and Prevention: ?More information about preventing HIV: www.cdc.gov/hiv/basics/prevention.html ?How to find a location where you can get sexual health materials and treatment for free or for a low cost: gettested.cdc.gov Summary HIV spreads through semen, blood, breast milk, rectal fluid, and vaginal fluid. HIV is commonly spread through sexual contact and sharing needles or syringes, because these behaviors lead to an exchange of bodily fluids. To protect yourself from HIV through sexual contact, use a barrier protection method every time youhave sex. Avoid having sex while under the influence of alcohol and drugs. These substances may lead you to engage in high risk behaviors. Get tested for HIV and make sure your sexual partner(s) get tested too. This information is not intended to replace advice given to you by your health care provider. Make sure you discuss any questions you have with your health care provider. Document Released: 05/17/2017 Document Revised: 09/21/2019 Document Reviewed: 05/17/2017 [employer] Patient Education 2019 [employer]. Follow Up Care 11/05/2021 08:18:10 With:Lg POP, JOÃO Nogueira, BRITTANY Address: When: Unknown [facility] [place] 05-26-2022 Hospital Discharge instructions Patient Education 11/05/2021 07:52:29 Vasectomy, Care After Vasectomy, Care After This sheet gives you information about how to care for yourself after your procedure. Your health care provider may also give you more specific instructions. If you have problems or questions, contact your health care provider. What can I expect after the procedure? After your procedure, it is common to have: Mild pain, swelling, redness, or discomfort in your scrotum. Some blood coming from your incisions or puncture sites for one or two days. Blood in your semen. Follow these instructions at home: Medicines Take ihge-jws-[id number] and prescription medicines only as told by your health care provider. Avoid taking NSAIDs such as aspirin and ibuprofen, because these medicines can make bleeding worse. Activity For the first 2 days after surgery, avoid physical activity and exercise that require a lot of energy. Ask your health care provider what activities are safe for you. Do not participate in sports or perform heavy physical labor until your pain has improved, or untilyour health care provider says it is okay. Do not ejaculate for at least 1 week after the procedure, or as long as directed. You may resume sexual activity 7 10 days after your procedure, or when your health care provider approves. Use a different method of control (contraception) until you have had test results thatconfirm that there is no sperm in your semen. Scrotal support Use scrotal support, such as a jock strap or underwear with a supportive pouch, as needed for one week after your procedure. If you feel discomfort in your scrotum, you may remove the scrotal support to see if the discomfortis relieved. Sometimes scrotal support can press on the scrotum and cause or worsen discomfort. If your skin gets irritated, you may add some germ-free (sterile), fluffed bandages or a clean washcloth to the scrotal support. General instructions Put ice on the injured area: ?Put ice in a plastic bag. ?Place a towel between your skin and the bag. ?Leave the ice on for 20 minutes, 2 3 times a day. Check your incisions or puncture sites every day for signs of infection. Check for: ?Redness, swelling, or pain. ?Fluid or blood. ?Warmth. ?Pus or a bad smell. Leave stitches (sutures) in place. The sutures will dissolve on their own and do not need to be removed. Keep all follow-up visits as told by your health care provider. This is important because you will need a test to confirm that there is no sperm in your semen. Multiple ejaculations are needed to clear out sperm that were beyond the vasectomy site. You will need one test result showing that there is no sperm in your semen before you can resume unprotected sex. This may take 2 4 months after your procedure. Do not drive for 24 hours if you were given a sedative to help you relax. Contact a health care provider if: You have redness, swelling, or more pain around your incision or puncture site, or in your scrotum area in general. You have bleeding from your incision or puncture site. You have pus or a bad smell coming from your incision or puncture site. You have a fever. Your incision or puncture site opens up. Get help right away if: You develop a rash. You have difficulty breathing. Summary After your procedure it is common to have mild pain, swelling, redness, or discomfort in your scrotum. Avoid physical activity and exercise that requires a lot of energy for the first 2 days after surgery. Put ice on the injured area. Leave the ice on for 20 minutes, 2 3 times a day. Do not drive for 24 hours if you were given a sedative to help you relax. This information is not intended to replace advice given to you by your health care provider. Make sure you discuss any questions you have with your health care provider. Document Released: 12/17/2005 Document Revised: 05/12/2018 Document Reviewed: 08/26/2017 [employer] Patient Education 2020 [employer]. Follow Up Care 10/20/2021 10:11:09 With:Lg POP, JOÃO Nogueira, URO Address: [address] [place] [address]- [phone] When:11/19/2021 [facility] [place] 04-27-2022 Hospital Discharge instructions Patient Education 10/07/2021 07:42:35 Vasectomy, Care After Vasectomy, Care After This sheet gives you information about how to care for yourself after your procedure. Your health care provider may also give you more specific instructions. If you have problems or questions, contact your health care provider. What can I expect after the procedure? After your procedure, it is common to have: Mild pain, swelling, redness, or discomfort in your scrotum. Some blood coming from your incisions or puncture sites for one or two days. Blood in your semen. Follow these instructions at home: Medicines Take yrmj-btt-[id number] and prescription medicines only as told by your health care provider. Avoid taking NSAIDs such as aspirin and ibuprofen, because these medicines can make bleeding worse. Activity For the first 2 days after surgery, avoid physical activity and exercise that require a lot of energy. Ask your health care provider what activities are safe for you. Do not participate in sports or perform heavy physical labor until your pain has improved, or untilyour health care provider says it is okay. Do not ejaculate for at least 1 week after the procedure, or as long as directed. You may resume sexual activity 7 10 days after your procedure, or when your health care provider approves. Use a different method of control (contraception) until you have had test results thatconfirm that there is no sperm in your semen. Scrotal support Use scrotal support, such as a jock strap or underwear with a supportive pouch, as needed for one week after your procedure. If you feel discomfort in your scrotum, you may remove the scrotal support to see if the discomfortis relieved. Sometimes scrotal support can press on the scrotum and cause or worsen discomfort. If your skin gets irritated, you may add some germ-free (sterile), fluffed bandages or a clean washcloth to the scrotal support. General instructions Put ice on the injured area: ?Put ice in a plastic bag. ?Place a towel between your skin and the bag. ?Leave the ice on for 20 minutes, 2 3 times a day. Check your incisions or puncture sites every day for signs of infection. Check for: ?Redness, swelling, or pain. ?Fluid or blood. ?Warmth. ?Pus or a bad smell. Leave stitches (sutures) in place. The sutures will dissolve on their own and do not need to be removed. Keep all follow-up visits as told by your health care provider. This is important because you will need a test to confirm that there is no sperm in your semen. Multiple ejaculations are needed to clear out sperm that were beyond the vasectomy site. You will need one test result showing that there is no sperm in your semen before you can resume unprotected sex. This may take 2 4 months after your procedure. Do not drive for 24 hours if you were given a sedative to help you relax. Contact a health care provider if: You have redness, swelling, or more pain around your incision or puncture site, or in your scrotum area in general. You have bleeding from your incision or puncture site. You have pus or a bad smell coming from your incision or puncture site. You have a fever. Your incision or puncture site opens up. Get help right away if: You develop a rash. You have difficulty breathing. Summary After your procedure it is common to have mild pain, swelling, redness, or discomfort in your scrotum. Avoid physical activity and exercise that requires a lot of energy for the first 2 days after surgery. Put ice on the injured area. Leave the ice on for 20 minutes, 2 3 times a day. Do not drive for 24 hours if you were given a sedative to help you relax. This information is not intended to replace advice given to you by your health care provider. Make sure you discuss any questions you have with your health care provider. Document Released: 12/17/2005 Document Revised: 05/12/2018 Document Reviewed: 08/26/2017 [employer] Patient Education 2020 [employer] Follow Up Care 09/17/2021 15:45:11 With:Lg POP, Shahrzad Funes, URMl, URO Address: When: Unknown Comments:will make appointment for vasectomy. [facility] evaluation + Plan note No data available for this section [facility] evaluation + Plan note Future Appointments Appointment Date:11/25/2021 08:00:00 AM Scheduled Provider:Lg POP, Shahrzad Funes Location:[facility] Appointment Type:URO Office Visit [facility] Huyen Evaluation noteNo assessment information available [facility] Work Phone: Evaluation noteNo [facility] Other Evaluation note* Diagnosis Onset Date Resolution Status Admit Date Overweight acuteJuly 2024 10:18amPectus excavatumacuteJuly 2024 10:18am Perspiration-excessiveacuteJuly 2024 10:18amWellness examinationacuteJuly 2024 10:18am [facility] Work Phone: History general Narrative - Reported* Type Description Date Medical History Over weight Medical HistoryLumbar back sprain, subsequent encounterSurgical Historywisdom teeth extractHospitalization Historysee surgical history [facility]ly [facility] Drug Response Dx Other Progress note No data available for this section [facility] reason for referral (narrative)No reason for referral information availableHocking Valley [facility] Work Phone: Summary Purpose Family History No Family History Records FoundNo Family History Records FoundNo Family History Records FoundNo Family History Records Found Advance Directives No Advanced Directives Records Found Advance Directive Response Recorded Date/ Time Advance Directives No February 5:51pm Chief Complaint and Reason for Visit Chief Complaint Z98.52 Chief Complaint Admit Date wellness, bp concerns December 18, 2024 10: 18am Reason for Visit Admit Date Overweight December 18, 2024 10:18 am Pectus excavatum December 18, 2024 10:18 am Perspiration-excessive December 18, 2024 10 :18am Wellness examination December 18, 2024 10:1 8am Additional Source Comments (unrecognized sect ion and content) No Status Records FoundNo Status Records FoundNo Status Records FoundNo Status Records Found INFORMATION SOURCE (unrecogn ized section and content) DATE CREATED AUTHOR 09/06/2019 [facility] DATE CREATED AUTHOR AUTHOR'S ORGANIZ ATION 03/14/2022 [facility] DATE CREATED AUTHOR AUTHOR'S ORGANIZ ATION 10/06/2024 [facility] DATE CREATED AUTHOR AUTHOR'S ORGANIZ ATION 01/22/2025 [facility] Care Team (unrecognized sect ion and content) Team Status: Inactive Member Role Status Dates Vincent Luna , Primary Care Provider Active Tanvir Mendieta ProviderActive Team Status: Active Member Role Status Dates Vincent Luna , Primary Care Provider Active Team Status: Inactive Member Role Status Dates Vincent Luna , Primary Care Provider Active Start: December 18, 2024 End: December 18enjalaol Luna DOAttkel ProviderActiveStart: December 18, 2024 End: December 18, 2024 Goals (unrecognized section and content) Goals may be documented in a n alternate section REASON FOR VISIT (unrecogniz ed section and content) On-Going Cough for monthsXra y results FOR RECORDS PERTAINING TO PATIENTS WHO ARE OR HAVE BEEN ENROLLED IN A CHEMICAL DEPENDENCY/SUBSTANCEABUSE PROGRAM, SOME INFORMATION MAY BE OMITTED. This clinical summary was aggregated from multiple sources. Caution should be exercised in using it in the provision of clinical care. This summary normalizes information from multiple sources, and as a consequence, information in this document may materially change the coding, format and clinical context of patient data. In addition, data may be omitted in some cases. CLINICAL DECISIONS SHOULD BE BASED ON THE PRIMARY CLINICAL RECORDS. [employer] provides no warranty or guarantee of the accuracy or completeness of information in this document.
== END 2025-05-15 08:00 | disposition home or self-care (01) ==
LOC: CARD 07:59
PROVIDERS: PCP Internal Medicine; Visit Provider Internal Medicine Interventional Cardiology
DX: R07.89 Other chest pain (principal); R06.02 Shortness of breath
CPT/HCPCS: 93306

== ENCOUNTER 2025-05-16 08:09 | Outpatient (OUT) | payer OTHER, SELFPAY ==
--- OUTSIDE RECORDS SUMMARY | 2025-05-16 08:13 | XMS_ITS | Clinical Summary ---
Author Organization [facility] Address [address] [place] [address] Care Team Providers Care Lining Mechanic Name Role Phone Vincent Luna DO Primary Care Provider [phone] Allergies Active AllergyReactionsCriticalityNoted DateCommentsCat Hair Std Allergenic Ext Other01/08/2025 Active Problems ProblemNoted DateDiagnosed DatePectus fwsutnnok89/11/2025 Family History Medical HistoryRelationNameCommentsHeart attackMaternal GrandfatherHeart attack Maternal GrandmotherHypertensionMotherHeart attackPaternal GrandfatherHeart attackPaternal GrandmotherRelationNameStatusCommentsMaternal GrandfatherMaternal GrandmotherMotherPaternal GrandfatherPaternal Grandmother Social History Tobacco UseTypesPacks/DayYears UsedDateSmoking Tobacco: NeverSmokeless Tobacco: Never Tobacco Cessation:Counseling Given: Not Answered Alcohol UseStandard Drinks/WeekCommentsYes0 (1 standard drink = 0.6 oz pure alcohol)sociallyPHQ-2AnswerDate RecordedPatient Health Questionnaire-2 Score0 01/08/2025Sex and Gender InformationValueDate RecordedSex Assigned at BirthMale 01/08/2025 2:40 PM EDTLegal HmjQuyx5312/25/2024 8:25 AM EDTGender IdentityMale 01/08/2025 2:40 PM EDTSexual OrientationHeterosexual or Atdqeihp78/29/2025 2:40 PM EDT Last Filed Vital Signs Vital SignReadingTime TakenCommentsBlood Pakrazcg799/7708 8:54 AM EDT Odygl556901/21/2025 8:54 AM YQZHsizbgonfjs28.5 ??C (97.7 ??F)01/08/2025 2:40 PM EDTRespiratory Rate--Oxygen Nveehfapbh62%01/21/2025 8:54 AM EDTInhaled Oxygen Concentration--Dbcfqw21.3 kg (219 lb)01/21/2025 8:54 AM HLXYmzwyy819.9 cm (6') 01/21/2025 8:54 AM EDTBody Mass Index29.7001/21/2025 8:54 AM EDT Plan of Treatment Health MaintenanceDue DateLast DoneCommentsVaricella Vaccines (1 of 2 - 13+ 2- dose series)2004Hepatitis B Vaccines (1 of 3 - 19+ 3-dose series) 2010dult Fnyfbhz1803/13/2013HPV Vaccines (1 - 3-dose SCDM series)2018 COVID-19 Vaccine ( - season)511/, 04/20/2021Influenza Vaccine (#1)2025Depression Hhpvzflmc55/29/16421101/08/2025Zoster Vaccines (1 of 2)2041HIB VaccinesAged OutNo longer [...] DateEnd Date Vincent Luna DO [address] [place] [address] PCP - GeneralInternal Medicine01/08/25
--- OUTSIDE RECORDS SUMMARY | 2025-05-16 08:14 | XMS_ITS | CCD ---
Author Organization [facility] Care Team Providers Care Recruiting Operations Consultant Name Role Phone VINCENT LUNA Admitting Unavailable VINCENT LUNA Attending Unavailable VINCENT LUNA Admitting Unavailable VINCENT LUNA Attending VINCENT Box Primary Care Physician [phone] DO Vincent Luna Primary Care Provider MD Shahrzad Castanon Attending Provider Vincent Luna Primary Care Unavailable Shahrzad Castanon Attending Shahrzad Boyce Admitting Unavailable Vincent Luna Unavailable Shahrzad Castanon. Attending Unavailable Shahrzad Castanon. Attending Unavailable Vincent Luna DO Primary Care Provider [phone] Vincent Luna DO Attending Provider MARY NGUYEN Attending Unavailabl e VINCENT LUNA Referring Unavailable SHAINA ARROYO Attending Unavailable JESSI ESQUIVEL Referring Unavailable Allergies Allergy ClassificationReported Allergen(s)Allergy TypeDate of OnsetReaction(s) Facility (4 sources)Seasonal allergy; Translations: [Seasonal]Allergy to substance Sneezing symptoms (finding)[facility] (1 source)CAT HAIR STD ALLERGENIC EXT; Translations: [CAT HAIR STD ALLERGENIC EXT]Propensity to adverse reactions to drug (disorder)69-34-9546PnvbnwafszOhioHealth Doctors Hospital Repository Medications Current Medications MedicationDrug Class(es)DatesSig (Normalized)Sig (Original)cephalexin 500 mg oral capsule (2 sources)Cephalosporin AntibacterialStart: 05-15-5827usdj 1 capsule by mouth four times dailyKeflex 500 mg Cap 500 mg = 1 cap(s), Oral, QID, # 20 cap(s), Refills(s) 0, Pharmacy: [facility]/pharmacy #[id number], 184, martín, 10/07/21 8:37:00 EDT, Height/Length Dosing, 90.9, kg, 10/07/21 8:37:00 EDT, Weight Dosing Start Date: 10/07/21 Status: Ordered Completed/Discontinued Medications MedicationDrug Class(es)DatesSig (Normalized)Sig (Original)acetaminophen 325 mg / HYDROcodone bitartrate 5 mg oral tablet (2 sources)Opioid AgonistStart: 10-07-2021 End: 35-33-7774Mzfkq 325 mg-5 mg oral tablet 1 tab(s), Oral, q6hr for severe uncontrolled pain, 4 tab(s), Refill(s) 0, [facility]/pharmacy #[id number], 184, , 10/07/21 8:37:00 EDT, Height/Length Dosing, 90.9, kg, 10/07/21 8:37:00 EDT, Weight Dosing Start Date: 10/07/21 Stop Date: 10/10/21 Status: Orderedcefdinir 300 mg oral capsule (2 sources)Cephalosporin AntibacterialStart: 48-36-9144Tlxhxpje 300 MG 1 Orally twice daily for 10 days Jun, Not-Takingcyclobenzaprine hydrochloride 10 mg oral tablet (2 sources)Muscle RelaxantStart: 00-40-7634demv 1 tablet by mouth every eight hoursCyclobenzaprine HCl 10 MG 1 tablet as needed Orally Three times a day for 10 days Feb, Not-TakingdiazePAM 10 mg oral tablet (1 source)BenzodiazepineStart: 12-14-6369Hbefoh 10 mg Tab 10 mg = 1 tab(s), Oral, As Directed, Take 1 tab 30 minutes before the procedure., # 1 tab(s), Refills(s) 0, Pharmacy: [facility]/pharmacy #[id number], 184, cm, 10/07/21 8:37:00 EDT, Height/LengthDosing, 90.9, kg, 10/07/21 8:37:00 EDT, Weight Dosing Start Date: 10/07/21 Status: Orderedhydrocortisone 10 mg/ml / neomycin 3.5 mg/ml / polymyxin b 50868 unt/ml otic suspension (2 sources)Aminoglycoside Antibacterial, Polymyxin-class Antibacterial, CorticosteroidStart: 88-12-8505Ltvxqjip-Polymyxin-HC 3.5-53807-3 4 drops into affected ear Otic qid for 7 days Jun, Not-Takingmeloxicam 7.5 mg oral tablet (2 sources)Nonsteroidal Anti-inflammatory Drugtake 1 tablet by mouth every twenty-four hoursMeloxicam 7.5 MG 1 tablet Orally Once a day Not-Taking methylPREDNISolone 4 mg oral tablet (2 sources)CorticosteroidStart: 21-77-5455Utzsvd (Johnny) 4 MG half of daily dose in the morning with food and the rest at night with food Orally Feb, Not-Taking Problems Active Problems Problem ClassificationProblemDateDocumented DateEpisodic/ChronicChronic obstructive pulmonary disease and bronchiectasis (1 source)Bronchitis, not specified as acute or chronicEpisodicContraceptive and procreative management (5 sources)Contraception status; Translations: [Encounter for other general counseling and advice on contraception]Onset: 49-15-8012GgueaoumSfuvnppsl of lipid metabolism (2 sources)Mixed hyperlipidemia; Translations: [Mixed hyperlipidemia]Onset: 08-61-1776AwrxspbVvqfkdmpler chest pain (2 sources)Other chest pain; Translations: [Other chest pain]Onset: 01-21-2025 EpisodicOther congenital anomalies (3 sources)Pectus excavatum; Translations: [Pectus excavatum]Onset: 01-08-2025 91-17-7998PkmatygTqebu congenital anomalies (1 source)Pectus excavatum; Translations: [Pectus excavatum]Onset: 01-08-2025 ChronicOther lower respiratory disease (2 sources)Shortness of breath; Translations: [Shortness of breath]Onset: 47-01-1467BzabjoprTcfcf nutritional; endocrine; and metabolic disorders (5 sources)Overweight; Translations: [Overweight]91-42-9178EzkfxiicUupcc nutritional; endocrine; and metabolic disorders (1 source)Overweight; Translations: [Overweight]EpisodicOther skin disorders (2 sources)Excessive sweating; Translations: [Generalized hyperhidrosis] 72-46-4459AtpoictuRotjebx and strains (10 sources)Sprain of ligaments of lumbar spine, subsequent encounter; Translations: [Lumbar sprain]Onset: 52-93-1320TmzcfcvhIaswrwgnyfmt (3 sources)Patient encounter -79-1919 Past or Other Problems Problem ClassificationProblemDateDocumented DateEpisodic/ChronicUnclassified (1 source)Persistent cough R05.3Viral infection (1 source)COVID-19 Results Test NameValueInterpretationReference NvuhjEadnalys77un [id number]. Due to your symptoms of shortness of breath and chest discomfort we will check a treadmill stress test and an echocardiogram. 2. You have elevated cholesterol levels. I recommended lifestyle modification with exercise and diet. 3. Follow-up in 6-monthNormalUniAshtabula County Medical CenterOffice Visiton 04-48-6138Ebshsz-up [id number] Anali Nelson 1990 M Date Provider Department Center 01/21/2025 Godwin-SHAINA ARROYO [facility] Family History Problem Relation Age of Onset Hypertension Mother Heart attack Maternal Grandmother Heart attack Maternal Grandfather Heart attack Paternal Grandmother Heart attack Paternal Grandfather Family Status - Relation Status Age at Mother Maternal Grandmother Maternal Grandfather Paternal Grandmother Paternal Grandfather Level of Service:75223 [place] OFFICE/[place] CONSLTJ NEW/EST PT MOD MDM 40 MINUTES (25)[facility]36on [phone] with call back number with Cardiology appointment details. TuesdayJanuary [address] Arroyo at [place] [facility].Normal [facility] HospitalAbstracton [id number] Anali Nelson 1990 M Date Provider Department Center 01/08/2025 2020-KENNY DUNN [facility] Family History Problem Relation Age of Onset Hypertension Mother Heart attack Maternal Grandmother Heart attack Maternal Grandfather Heart attack Paternal Grandmother Heart attack Paternal Grandfather Family Status - Relation Status Age at Mother Maternal Grandmother Maternal Grandfather Paternal Grandmother Paternal GrandfatherNormalParma Community General HospitalConsulton [id number] Anali Nelson 1990 M Date Provider Department Center 01/08/2025 30001-GQQAJPWWSSMARY NGUYEN [facility] [place] [facility] Family History Problem Relation Age of Onset Hypertension Mother Heart attack Maternal Grandmother Heart attack Maternal Grandfather Heart attack Paternal Grandmother Heart attack Paternal Grandfather Family Status - Relation Status Age at Mother Maternal Grandmother Maternal Grandfather Paternal Grandmother Paternal Grandfather Level of Service:60850 [place] OFFICE/OP CONSLTJ NEW/EST PT HIGH MDM 55 MINUTES Reason for Visit and Comments: Consult [484] - Pectus excavatum [facility] HospitalAmbulatory Visit Summaryon 02-36-8546Uztdozkawx Visit SummaryAmbulatory Visit Summary ANALI NELSON :1990 [...] provider. Document Revised: 03/14/2023 Document Reviewed: 03/14/2023 [employer] [place] Patient Education ??? 2023 [employer]. NormalFisher [facility] Of Maryland Medical CenterUrology Office/Clinic Noteon 90-70-1486Pudteyt Office/Clinic NoteUrology Office/Clinic Note Chief Complaint scrotal [...] Protein Urine Dipstick: Negative (10/05/24 09:12:00) Specific [place] Urine Dipstick: 1.025 (10/05/24 09:12:00) Urine Appearance Urine Dipstick: Clear (10/05/24 09:12:00) Urine Color Urine Dipstick: Yellow (10/05/24 09:12:00) Urobilinogen Urine Dipstick: Normal 0.2-1 EU/dl (10/05/24 09:12:00) pH Urine Dipstick: 5.5 (10/05/24 09:12:00)[facility] Comment on above:Result Comment: Electronically Signed By: Lg POP, Shahrzad Funes\.br\Date and Time Signed: 10/05/24 09:48EDT\.br\Electronically Co-Signed By: Crystal Mobley\.br\Date and Time Co-Signed: 10/05/24 09:39 EDTSemen Analysis, Post Vasectomyon 43-05-3715Yusad Analysis, Post VasectomyNo Spermatozoa Seen NormalNone [facility] HospitalComment on above:Performed By: #### SEMPOST #### [place] [address] USAResult Comment: PERFORMED BY: [place] [address] PATHOLOGIST AUDIENCE DEVELOPMENT MANAGER ROMINA ALTMAN M.D.Semen analysis post vasectomy panelOrdered By: Shahrzad Castanon on 14-20-0512Ilqnd analysis p vasectomy panel (Sunny)No spermatozoa seenNone Seen [facility] Vital Signs Date TimeVital SignValuePerforming YmxrjltbeOxxjalsp02-05-0193 10:Body awpgwm281.88 cmBenjamin Ball DO Work Phone: [facility]07-08-2025 10: Body mass index (BMI) [Ratio]29.6 kg/j6Hpkwidap Ball DO Work Phone: [facility]07-08-2025 10: Body aadsvv69.1 kgBenjamin Ball DO Work Phone: [facility]07-08-2025 10:28-0400 Diastolic blood vrredybd42 mm[Hg]Vincent Ball DO Work Phone: [facility]07-08-2025 10:28-0400 Heart rate71 /minBenjamin Ball DO Work Phone: [facility]07-08-2025 10:28-0400 Respiratory rate12 /minBenjamin Ball DO Work Phone: [facility]07-08-2025 10:28-0400 Systolic blood xjrwjjac946 mm[Hg]Vincent Ball DO Work Phone: [phone]10-30-2023 08:45-0400 Body .42 cmBenjamin Ball Other [employer] Other 10-30-2023 08:45-0400Body mass index (BMI) [Ratio]26.3 kg/a2Cobhwsbq Ball Other [facility] Other 10-30-2023 08:45-0400Body urymlp78.45 kgBenjamin Ball Other [facility] [employer] Other 10-30-2023 08:45-0400Diastolic blood sipehvxt34 mm[Hg] Vincent Ball Other [employer] [facility] Other 10-30-2023 08:45-0400Respiratory rate12 /minBenjamin Ball Other [employer] Other 10-30-2023 08:45-0400Systolic blood ijblhkqn278 mm[Hg] Vincent Ball Other [employer] Other 06-15-2022 07:57-0400Blood Pressure LocationKathy Lue [facility] [employer] 06-15-2022 07:57-0400Diastolic blood vmmduwct28 mm[Hg] Shahrzad Lue [facility] [address] 06-15-2022 07:57-0400Heart rate67 /minKathy Lue [facility] [address] 06-15-2022 07:57-0400Systolic blood qpyfzrez539 mm[Hg] Shahrzad Lue [facility] [address] 05-26-2022 07:29-0400Blood Pressure LocationKathy Lue [facility] [address] [employer] 05-26-2022 07:29-0400Diastolic blood uwrxdsxz48 mm[Hg] Shahrzad Lue [facility] [address] 05-26-2022 07:29-0400Heart rate75 /minKathy Lue [facility] [address] [employer] 05-26-2022 07:29-0400Respiratory rate16 /minKathy Lue [facility] [address] [employer] 05-26-2022 07:29-0400Systolic blood rzycxjgy167 mm[Hg] Shahrzad Lue [facility] 04-27-2022 08:33-0400Diastolic blood uljtyukf85 mm[Hg] Shahrzad Lue [facility] 04-27-2022 08:33-0400Heart rate64 /minKathy Lue [facility] 04-27-2022 08:33-0400Respiratory rate16 /minKathy Lue [facility] 04-27-2022 08:33-0400Systolic blood ynursquq000 mm[Hg] Shahrzad Lue [facility] Encounters Encounter DateEncounter TypeCare ProviderFacilityStart: 01-21-2025 End: 79-72-5542espgkajewlJHHJAS MOUKARBMiami Valley Hospital Start: 01-08-2025 End: 77-14-0458jnxggselsjTWCTFDN J KULAKOWSMercy Health [facility] Start: 12-18-2024 End: 05-56-8123tdzcfatlcuSrnxynux Jeremy DO Work Phone: [facility] Work Phone: Start: 12-18-2024 End: 75-25-9620Ufbjgrv encounter procedureBemarcela Luna DOPho[facility] Work Phone: Start: 12-18-2024 End: 93-98-5681Retwlkj encounter statusBemarcela Luna [facility] Centertart: 10-05-2024 End: 24-36-1154fqrnsqmzcsTbeiw M. LueFacility:NICK BellevueStart: 08-25-2024 Patient encounter statusBemarcela Jeremy DO Work Phone: [facility]: 04-12-2023 End: 62-71-2537ocsaxnqagoMgaanxnb Ball Other [facility] [employer] Other Start: 58-71-5395Nyycxjuuq encounterBemarcela Luna Medical ClinicStart: 04-11-2023 End: 95-08-8626ndmqvwrxdjRzvcnkzd Ball Other [facility] [employer] Other Start: 61-67-7901Hktnpt outpatient visit 15 minutes Vincent Luna [facility] ClinicStart: 02-22-2022 End: 90-77-4167ayelpfpognHswymohz BallFacility:[facility] Start: 02-22-2022 End: 19-74-7004Yeiwzhf encounter procedureDO Vincent Luna Work Phone: [facility] CampusStart: 11-25-2021 End: 30-31-0431Hvtptjr encounter procedureShahrzad Castanon [facility] start: 11-05-2021 End: 87-03-6753Qzprkqh encounter procedureShahrzad Castanon [facility] Start: 10-07-2021 End: 07-88-6890Vebufrs encounter procedureShahrzad Castanon [facility] start: 28-91-0899Bamxjwb encounter procedureBEMichaelLUZ ELENA LUNAFacility:Z4Ycpau: 05-04-2019 End: 98-48-4769Aaaxqtd encounter procedureBEMichaelLUZ ELENA LUNAFacility:H1 Procedures DateProcedureProcedure DetailPerforming ClinicianStart: 11-25-2021H/O: vasectomy Shahrzad M. Lue Start: 79-83-8425VllcvomsiDiqnt Lue Plan of Treatment DateCare ActivityDetailAuthorComprehensive metabolic 2000 panel - Serum or PlasmaLarkin [facility] Immunizations Immunization DateImmunizationNotesCare TldsnelrKvozagoc70-48-3327HTEX-SmN-7 (COVID-19) Ad26 vaccine, recombinantKathy Lue [facility] 11-319758-97-9573OQHS-JmF-0 (COVID-19) Ad26 vaccine, recombinantKathy Lue [facility] Payers DatePayer CategoryPayerPolicy [id number]-[id number] [id number] Health [id number] [id number] Health [id number] [id number] [id number] Social History DateTypeDetailFacilityStart: 07-06-2017 End: 06-99-4271Ioqugsl smoking statusNever smoked tobacco (finding)[facility] sex Assigned At [facility] Tobacco smoking statusNeverExec[facility] start: 12-19-9758Wtl [facility] (finding)[facility] Functional Status NfxiGgmzoauylqKconceYbvkdhxs09-28-8412Fpduqmvlos StatusN/AExec[facility] Clinical Notes 10-07-2021 to 01-21-2025 Note Date & AemdBbnwDuijubnt40-10-8028 NoteUT Cardiology [facility] David Nelson is a 34 y.o. [...] modification with diet (more content not included)... [facility]07-29-2025 NoteCardiothoracic Surgery Outpatient Consultation Note 01/08/2025 [...] Excavatum conservatively. Informed will refer patient to [place] [facility] to r/o cardiac cause. Also discussed [...] prior imaging. Cardiothoracic Surgery outpatient Office Number [phone]. Cardiothoracic Surgery outpatient . [1] Family History Problem Relation Name Age of Onset Hypertension Mother Heart attack Maternal Grandmother Heart attack Maternal Grandfather Heart attack Paternal Grandmother Heart attack Paternal Grandfather [2] No current outpatient medications on file. No current facility-administered medications for this visit.[facility]07-18-2025 Bytt0hy attempt to reach patient to schedule no answer lmom. Also received [facility] for [facility] follow [facility]07-15-2025 NoteRef[facility] Luna was sent to [place]. [facility] to see if they had any images or testing on patient they stated that they did not. Call placed to patient to see if he had any images no answer lmom to call back. [facility]04-25-2025 NotePatient Education Urology Testicular Self-Exam A [...] provider. Document Revised: 03/14/2023 Document Reviewed: 03/14/2023 [employer] Patient Education ? 2023 [employer].[facility] 04-11-2023 Evaluation note* Encounter Date Diagnosis Assessment [...] fluids CXR to r/o pneumothorax and pneumonia [facility] Other 06-15-2022 Evaluation + Plan note Diagnostic Tests Pending * Semen Analysis Post Vasectomy 11/25/21 [facility] 06-15-2022 Hospital Discharge instructions Patient Education 11/25/2021 [...] 05/17/2017 Document Revised: 09/21/2019 Document Reviewed: 05/17/2017 [employer]First Patient Education 2019 [employer]. Follow Up Care 11/05/2021 08:18:10 With:Lg POP, JOÃO Nogueira, BRITTANY Address: When: Unknown [facility] [place] 05-26-2022 Hospital Discharge instructions Patient Education 11/05/2021 [...] Follow these instructions at home: Medicines Take fxcz-kfw-uxgtnhy and prescription medicines only as told by [...] 12/17/2005 Document Revised: 05/12/2018 Document Reviewed: 08/26/2017 [employer] [place] Patient Education 2020 [employer]. Follow Up Care 10/20/2021 10:11:09 With:Lg POP, JOÃO Nogueira, URO Address: [address] [place] [phone] When:11/19/2021 [facility] [place] 04-27-2022 Hospital Discharge instructions Patient [...] Follow these instructions at home: Medicines Take ftqy-yzr-igkncnf and prescription medicines only as told by [...] 12/17/2005 Document Revised: 05/12/2018 Document Reviewed: 08/26/2017 [employer] [place] Patient Education 2020 [employer] Follow Up Care 09/17/2021 15:45:11 With:Lg POP, Shahrzad Funes, URMl, URO Address: When: Unknown Comments:will make appointment for vasectomy. [facility] evaluation + Plan note No data available for this section [facility] evaluation + Plan note Future Appointments Appointment Date:11/25/2021 08:00:00 AM Scheduled Provider:Lg POP, Shahrzad Funes Location:[facility] Appointment Type:URO Office Visit [facility] [place] Evaluation noteNo assessment information available [facility] Work Phone: Evaluation noteNo InformationNortCrozer-Chester Medical Center [email or web address] Other Evaluation note* Diagnosis Onset Date Resolution Status Admit Date Overweight acuteJuly 2024 10:18amPectus excavatumacuteJuly 2024 10:18am Perspiration-excessiveacuteJuly 2024 10:18amWellness examinationacuteJuly 2024 10:18am [facility] Work Phone: History general Narrative - Reported* Type Description Date Medical History Over weight Medical HistoryLumbar back sprain, subsequent encounterSurgical Historywisdom teeth extractHospitalization Historysee surgical history [facility] [employer] Other Progress note No data available for this section [facility] reason for referral (narrative)No reason for referral information availableAultman Orrville Hospital Work Phone: Summary Purpose Family History [...] section and content) DATE CREATED AUTHOR 09/06/2019 [facility] DATE CREATED AUTHOR AUTHOR'S ORGANIZ ATION 03/14/2022 [facility] DATE CREATED AUTHOR AUTHOR'S ORGANIZ ATION 10/06/2024 [facility] DATE CREATED AUTHOR AUTHOR'S ORGANIZ ATION 01/22/2025 [facility] Care Team (unrecognized sect ion and content) Team Status: Inactive Member Role Status Dates Vincent Luna , Primary Care Provider Active Tanvir Mendieta ProviderActive Team Status: Active Member Role Status Dates Vincent Luna , Primary Care Provider Active Team Status: Inactive Member Role Status Dates Vincent Luna , Primary Care Provider Active Start: December 18, 2024 End: December 18enjalalo Luna DOAttkel ProviderActiveStart: December 18, 2024 End: [...] BE BASED ON THE PRIMARY CLINICAL RECORDS. [employer] provides no warranty or guarantee of the accuracy or completeness of information in this document.
--- NOTE | 2025-05-16 09:11 | PC.NURSE ---
Nursing Note Cardiac Stress Test Reviewed: Medication, allergies and patient history reviewed. Stress Test: [ x ]? Patient tolerated stress test well. [ ]? Patient unable to tolerate walking on treadmill. Switched to Lexiscan stress test. [x ]? No chest pain noted per patient [ ]? Chest pain that resolved prior to leaving stress lab. [ ]? No dyspnea noted. [ x ]? Dyspnea that resolved prior to leaving stress lab. [x ]? Patient left stress lab asymptomatic and hemodynamically stable. [ ]? Patient taken to the Emergency Room due to non-resolving symptoms following stress test. [ ]? Patient achieved target heart rate. [x ]? Patient unable to achieve target heart rate. [ ]? Aminophylline administered as reversal agent to Lexiscan (Regadenoson). [ ]? Nitro administered. Nursing Comments: Patient was unable to reach target heart rate. Patient states my legs are killing me. Patient denies chest pain, complained of mild exercise induced SOB. SOB subsided after 2 minutes of resting. Patient denies all symptoms on discharge. Patient ambulated to exit with this RN.
--- NOTE | 2025-05-17 18:10 | PM.STRESS ---
Stress Test Stress Test Requesting physician: SHAINA ARROYO Procedure: This was a Treadmill stress test performed at the [facility] on 05/16/2025. The patient was attached to electrocardiographic monitoring. Baseline vital signs and ECG were obtained. The patient exercised on the treadmill according to the Rajinder protocol. Exercise time was 12 minutes and 1 seconds and the patient reached stage V of the Rajinder protocol and achieved 13.4 METS. Resting heart rate was 63 bpm and peak heart rate was 155 bpm representing 83% of maximal predicted heart rate. Resting blood pressure was 122/87 and peak blood pressure was 158/94. The test was terminated due to leg discomfort, fatigue and shortness of breath. General Information: Reason for Stress Test: Atypical chest pain, shortness of breath. Cardiac History and Risk Factors: None. Resting 12 - Lead Electrocardiogram: Normal sinus rhythm, normal ECG. Stress Test: Protocol: Treadmill stress test, Rajinder protocol. Exercise Capacity: Good. Blood Pressure Response: Resting elevated blood pressure, appropriate response to exercise. Rhythm: Sinus rhythm with no arrhythmias. ST - Response: No ischemic ST changes seen. Patient Response: Shortness of breath, fatigue and leg discomfort. Interpretation: 1. Submaximal stress test due to failure to achieving target heart rate [patient achieved 83% of maximal predicted heart rate]. 2. No evidence of ischemic ECG changes seen at the workload achieved. 3. Salazar treadmill score of +8 is associated with low risk for long-term cardiac events.
== END 2025-05-16 08:10 | disposition home or self-care (01) ==
LOC: CARD 08:09
PROVIDERS: PCP Internal Medicine; Visit Provider Internal Medicine Interventional Cardiology
DX: R07.89 Other chest pain (principal); R06.02 Shortness of breath
CPT/HCPCS: 93017